=== PATIENT | female | born 1990 | race Caucasian/White ===

== ENCOUNTER 2018-12-15 17:35 | Inpatient (IN) | payer OTHER ==
[2018-12-15 17:42] VITALS: BMI 14.0
--- NOTE | 2018-12-15 21:31 | HP ---
CIWA Score Nausea/Vomitin (VOMITING X 5) Muscle Tremors: 4-Moderate,w/Arms Extend Anxiety: 3 Agitation: 3 Paroxysmal Sweats: 2 Orientation: 0-Oriented Tacttile Disturbances: 1-Very Mild Itch/Numbness Auditory Disturbances: 0-None Visual Disturbances: 0-None Headache: 3-Moderate CIWA-Ar Total Score: 19 - Admission Criteria OASAS Guidelines: Admission for Medically Managed Detox: Requires at least one of the followin. CIWA greater than 12 2. Seizures within the past 24 hours 3. Delirium tremens within the past 24 hours 4. Hallucinations within the past 24 hours 5. Acute intervention needed for co occurring medical disorder 6. Acute intervention needed for co occurring psychiatric disorder 7. Severe withdrawal that cannot be handled at a lower level of care (continued vomiting, continued diarrhea, abnormal vital signs) requiring intravenous medication and/or fluids 8. Admission ROS [facility] Chief Complaint: ALCOHOL WITHDRAWAL SYMPTOMS Allergies/Adverse Reactions: Allergies Allergy/AdvReac Type Severity Reaction Status Date / Time amoxicillin trihydrate AdvReac Intermediate Vomiting Verified 12/15/18 22:13 [From Augmentin] potassium clavulanate AdvReac Intermediate Vomiting Verified 12/15/18 22:13 [From Augmentin] History of Present Illness: 28 years old female with 11 years of alcohol dependence is seeking admission to detox. Patient reports last detox in 2016 and insignificant period of sobriety. She reports history of depression, anxiety and suicide attempt in 2006 and 2011 respectively. She denies suicide ideation at this time. Exam Limitations: No Limitations - Ebola screening Have you traveled outside of the country in the last 21 days: No Have you had contact with anyone from an Ebola affected area: No Have you been sick,other than usual withdrawal symptoms: No Do you have a fever: No - Review of Systems Constitutional: Chills, Loss of Appetite, Malaise, Night Sweats, Changes in sleep EENT: reports: Sinus Pressure Respiratory: reports: No Symptoms reported Cardiac: reports: No Symptoms Reported GI: reports: Poor Appetite, Poor Fluid Intake, Abdominal cramping : reports: No Symptoms Reported Musculoskeletal: reports: Back Pain, Muscle Weakness Integumentary: reports: Dryness, Flushing Neuro: reports: Tremors Endocrine: reports: No Symptoms Reported Hematology: reports: No Symptoms Reported Psychiatric: reports: Anxious, Depressed Other Systems: Reviewed and Negative Patient History - Patient Medical History Hx Anemia: No Hx Asthma: No Hx Chronic Obstructive Pulmonary Disease (COPD): No Hx Cancer: No Hx Cardiac Disorders: No Hx Congestive Heart Failure: No Hx Hypertension: No Hx Hypercholesterolemia: No Hx Pacemaker: No HX Cerebrovascular Accident: No Hx Seizures: No Hx Dementia: No Hx Diabetes: No Hx Gastrointestinal Disorders: No Hx Liver Disease: No Hx Genitourinary Disorders: No Hx Sexually Transmitted Disorders: No Hx Renal Disease (ESRD): No Hx Thyroid Disease: No Hx Human Immunodeficiency Virus (HIV): No (last 09/13/15) Hx Hepatitis C: No Hx Depression: Yes Hx Suicide Attempt: Yes (cut left wrist 2006,2011. Denies suicidal ideation at this time) Hx Bipolar Disorder: No Hx Schizophrenia: No Other Medical History: Anxiety - Not on medication - Patient Surgical History Past Surgical History: Yes Other Surgical History: RIGHT HIP CYST REMOVAL - PPD History Previous Implant?: Yes Documented Results: Negative w/o proof Implanted On Prior [facility] Admission?: Yes Date: 09/16/15 PPD to be Administered?: Yes - Reproductive History Patient is a Female of Child Bearing Age (11 -55 yrs old): Yes Last Menstrual Period: 12/08/18 Patient : No - Smoking Cessation Smoking history: Current every day smoker Have you smoked in the past 12 months: Yes Aproximately how many cigarettes per day: 20 Cigars Per Day: 0 Hx Chewing Tobacco Use: No Initiated information on smoking cessation: Yes 'Breaking Loose' booklet given: 12/16/18 - Substance & Tx. History Hx Alcohol Use: Yes Hx Substance Use: Yes Substance Use Type: Alcohol Hx Substance Use Treatment: Yes - Substances Abused Alcohol Route: Oral Frequency: Daily Amount used: Liquor 3-4 pints Age of first use: 17 Date of Last Use: 12/15/18 Marijuana/Hashish Route: Smoking Frequency: Daily Amount used: $200/week Age of first use: 16 Date of Last Use: 12/15/18 Family Disease History - Family Disease History Family Disease History: Other: Father (alcohol), Mother (alcohol) Admission Physical Exam [facility] - Vital Signs Vital Signs: Vital Signs - 24 hr 12/15/18 17:37 Temperature 98.6 F Pulse Rate 74 Respiratory 18 Rate Blood Pressure 102/73 - Physical General Appearance: Yes: Moderate Distress, Tremorous, Irritable, Sweating, Anxious HEENTM: Yes: EOMI, Normal ENT Inspection, Normal Voice, KIKE Respiratory: Yes: Lungs Clear, Normal Breath Sounds, No Respiratory Distress Neck: Yes: Supple Breast: Yes: Breast Exam Deferred Cardiology: Yes: Regular Rhythm, Regular Rate Abdominal: Yes: Normal Bowel Sounds Genitourinary: Yes: Within Normal Limits Back: Yes: Normal Inspection Musculoskeletal: Yes: Back pain, Muscle Pain Extremities: Yes: Tremors Neurological: Yes: Alert, Normal Mood/Affect Integumentary: Yes: Warm, Clammy Lymphatic: Yes: Within Normal Limits - Diagnostic (1) Anxiety Current Visit: Yes Status: Chronic (2) Alcohol dependence with uncomplicated withdrawal Current Visit: Yes Status: Chronic (3) Cannabis dependence Current Visit: Yes Status: Chronic (4) Depression Current Visit: Yes Status: Chronic Qualifiers: Depression Type: unspecified Qualified Code(s): F32.9 - Major depressive disorder, single episode, unspecified (5) Nicotine dependence Current Visit: Yes Status: Chronic Qualifiers: Nicotine product type: cigarettes Substance use status: uncomplicated Qualified Code(s): F17.210 - Nicotine dependence, cigarettes, uncomplicated Cleared for Admission [facility] - Detox or Rehab [facility] Level of Care: Medically Managed Detox Regimen/Protocol: Librium [facility] Breath Alcohol Content Breath Alcohol Content: 0 Urine Pregancy Test - Result Urine Test Results: Negative- NO Line Present Urine Drug Screen - Results Drug Screen Negative: No Urine Drug Screen Results: THC-Marijuana, BAR-Barbiturates
[2018-12-16] MEDS ORDERED: MAG HYDROX/AL HYDROX/SIMETH 30 ML UNIT-DOSE CUP PO PRN (01:19)
[2018-12-16] MEDS ORDERED: LOPERAMIDE HCL 2 MG CAPSULE PO PRN (01:19)
[2018-12-16] MEDS ORDERED: P-EPHED 60MG/TRIPROLIDI 2.5MG TABLET PO PRN (01:19)
[2018-12-16] MEDS ORDERED: ACETAMINOPHEN 325 MG TABLET (FP) PO PRN (01:19)
[2018-12-16] MEDS ORDERED: IBUPROFEN 400 MG TABLET (FP) PO PRN (01:19)
[2018-12-16] MEDS ORDERED: MAGNESIUM CITRATE 300 ML BOTTLE PO PRN (01:19)
[2018-12-16] MEDS ORDERED: NICOTINE POLACRILEX 2 MG GUM BC PRN (01:19)
[2018-12-16] MEDS ORDERED: MAGNESIUM HYDROX 2400MG/30ML ORAL SUSPENSION 30 ML CUP PO PRN (01:19)
[2018-12-16] MEDS ORDERED: chlordiazePOXIDE HCL 25 MG CAPSULE PO PRN (01:19)
[2018-12-16] MEDS ORDERED: MENTHOL/PHENOL 1 EACH UD MM PRN (01:19)
[2018-12-16] MEDS ORDERED: guaiFENesin/D-METHORPHAN HB 10 ML UNIT-DOSE CUPS PO PRN (01:19)
[2018-12-16] MEDS: chlordiazePOXIDE HCL 25 MG CAPSULE PO SCH ×4 (05:42→22:41)
[2018-12-16] MEDS: NICOTINE 14 MG/24 HOURS TOPICAL PATCH TD SCH (10:28)
[2018-12-16] MEDS: PRENATAL VITAMINS W/ FOLIC ACID TABLET (FP) PO SCH (10:28)
[2018-12-16] MEDS ORDERED: ONDANSETRON *ODT* 4 MG TABLET SL PRN (14:01)
--- NOTE | 2018-12-16 16:14 | PN ---
S CIWA - CIWA Score Nausea/Vomitin Muscle Tremors: 3 Anxiety: 3 Agitation: 2 Paroxysmal Sweats: 3 Orientation: 0-Oriented Tacttile Disturbances: 2-Mild Itch/Numbness/Burn Auditory Disturbances: 0-None Visual Disturbances: 0-None Headache: 2-Mild CIWA-Ar Total Score: 20 BHS Progress Note (SOAP) Subjective: Diarrhea, Sweating, Vomiting, Tremors, Interrupted Sleep, Body Aches, H/A. Objective: PATIENT A & O X 3, OBSERVED AMBULATING ON UNIT. IN NO ACUTE DISTRESS. 12/16/18 16:12 Vital Signs Temperature 98.1 F 12/16/18 14:00 Pulse Rate 69 12/16/18 14:00 Respiratory Rate 20 12/16/18 14:00 Blood Pressure 112/80 12/16/18 14:00 O2 Sat by Pulse Oximetry (%) ADMISSION LABS RESULTS PENDING. 12/16/18 16:13 Assessment: 12/16/18 16:13 WITHDRAWAL SYMPTOMS. Plan: CONTINUE DETOX. PRN ZOFRAN SL FOR VOMITING. PRN IMMODIUM FOR DIARRHEA. PRN MELATONIN PO FOR SLEEPING DIFFICULTY. INCREASE DAILY PO FLUID INTAKE.
[2018-12-16] MEDS: THIAMINE HCL 100 MG TABLET (FP) PO SCH (22:41)
[2018-12-17] MEDS: chlordiazePOXIDE HCL 25 MG CAPSULE PO SCH ×4 (05:31→22:30)
[2018-12-17] MEDS: PRENATAL VITAMINS W/ FOLIC ACID TABLET (FP) PO SCH (10:15)
[2018-12-17] MEDS: NICOTINE 14 MG/24 HOURS TOPICAL PATCH TD SCH (10:16)
[2018-12-17 10:26] LABS: ALBUMIN 3.8 g/dl (3.4-5.0); ALK PHOS 62 U/L (45-117); ANION GAP 9 MMOL/L (8-16); BILIRUBIN,TOTAL 0.5 mg/dL (0.2-1); BLOOD UREA NITROGEN 8 mg/dL (7-18); CALCIUM 9.1 mg/dL (8.5-10.1); CHLORIDE 100 mmol/L (98-107); CO2 29 mmol/L (21-32); CREATININE 0.8 mg/dL (0.55-1.3); GLUCOSE,RANDOM 98 mg/dL (74-106); POTASSIUM 3.3 mmol/L (3.5-5.1); SGOT/AST 25 U/L (15-37); SGPT/ALT 29 U/L (13-61); SODIUM 138 mmol/L (136-145); TOT PROT 7.1 g/dl (6.4-8.2)
[2018-12-17 10:42] LABS: HEMOGLOBIN 11.4 GM/dL (10.7-15.3); MCH 30.2 pg (25.7-33.7); MCHC 33.4 g/dl (32.0-36.0); MEAN CELL VOLUME 90.2 fl (80-96); MEAN PLT VOLUME 9.1 fl (7.5-11.1); PLATELET COUNT 219 K/MM3 (134-434); RBC 3.77 M/mm3 (3.60-5.2); RDW 17.5 % (11.6-15.6); WHITE BLOOD COUNT 3.9 K/mm3 (4.0-10.0)
--- NOTE | 2018-12-17 14:19 | PN ---
S CIWA - CIWA Score Nausea/Vomitin-Mild Nausea/No Vomiting Muscle Tremors: 4-Moderate,w/Arms Extend Anxiety: 2 Agitation: 3 Paroxysmal Sweats: 1-Minimal Palms Moist Orientation: 1-Uncertain about Date Tacttile Disturbances: 0-None Auditory Disturbances: 1-Very Mild Visual Disturbances: 0-None Headache: 2-Mild CIWA-Ar Total Score: 15 S Progress Note (SOAP) Subjective: tremor sweating anxiety restlessness trouble sleep at night Objective: 12/17/18 14:15 Vital Signs Temperature 98.2 F 12/17/18 14:03 Pulse Rate 64 12/17/18 14:03 Respiratory Rate 16 12/17/18 14:03 Blood Pressure 107/63 12/17/18 14:03 O2 Sat by Pulse Oximetry (%) Laboratory Last Values WBC 3.9 K/mm3 (4.0-10.0) L 12/17/18 07:50 RBC 3.77 M/mm3 (3.60-5.2) 12/17/18 07:50 Hgb 11.4 GM/dL (10.7-15.3) 12/17/18 07:50 Hct 34.0 % (32.4-45.2) 12/17/18 07:50 MCV 90.2 fl (80-96) 12/17/18 07:50 MCH 30.2 pg (25.7-33.7) 12/17/18 07:50 MCHC 33.4 g/dl (32.0-36.0) 12/17/18 07:50 RDW 17.5 % (11.6-15.6) H 12/17/18 07:50 Plt Count 219 K/MM3 (134-434) 12/17/18 07:50 MPV 9.1 fl (7.5-11.1) 12/17/18 07:50 Sodium 138 mmol/L (136-145) 12/17/18 07:50 Potassium 3.3 mmol/L (3.5-5.1) L 12/17/18 07:50 Chloride 100 mmol/L (98-107) 12/17/18 07:50 Carbon Dioxide 29 mmol/L (21-32) 12/17/18 07:50 Anion Gap 9 MMOL/L (8-16) 12/17/18 07:50 BUN 8 mg/dL (7-18) 12/17/18 07:50 Creatinine 0.8 mg/dL (0.55-1.3) 12/17/18 07:50 Creat Clearance w eGFR > 60 (>60) 12/17/18 07:50 Random Glucose 98 mg/dL (74-106) 12/17/18 07:50 Calcium 9.1 mg/dL (8.5-10.1) 12/17/18 07:50 Total Bilirubin 0.5 mg/dL (0.2-1) 12/17/18 07:50 AST 25 U/L (15-37) 12/17/18 07:50 ALT 29 U/L (13-61) 12/17/18 07:50 Alkaline Phosphatase 62 U/L (45-117) 12/17/18 07:50 Total Protein 7.1 g/dl (6.4-8.2) 12/17/18 07:50 Albumin 3.8 g/dl (3.4-5.0) 12/17/18 07:50 RPR Titer Nonreactive (NONREACTIVE) 12/17/18 07:50 HIV 1&2 Antibody Screen Negative 12/16/18 08:00 HIV P24 Antigen Negative 12/16/18 08:00 lab noted K+ low Assessment: 12/17/18 14:15 withdrawal sx hypokalemia Plan: continue detox K+ supplement repeat K+ 12/18/18
[2018-12-17] MEDS: THIAMINE HCL 100 MG TABLET (FP) PO SCH (22:29)
[2018-12-17] MEDS: POTASSIUM CHLORIDE TABS 20 MEQ TABLET.ER (FP) PO SCH (22:30)
[2018-12-17] MEDS: MELATONIN 5 MG TABLETS PO PRN (22:31)
[2018-12-18] MEDS: chlordiazePOXIDE 5 MG CAPSULE PO SCH ×4 (05:39→22:29)
[2018-12-18] MEDS ORDERED: POTASSIUM CHLORIDE TABS 20 MEQ TABLET.ER (FP) PO SCH (06:00)
[2018-12-18] MEDS: NICOTINE 14 MG/24 HOURS TOPICAL PATCH TD SCH (10:07)
[2018-12-18] MEDS: POTASSIUM CHLORIDE TABS 20 MEQ TABLET.ER (FP) PO SCH ×2 (10:07→22:28)
[2018-12-18] MEDS: PRENATAL VITAMINS W/ FOLIC ACID TABLET (FP) PO SCH (10:08)
[2018-12-18] MEDS ORDERED: CYCLOBENZAPRINE HCL 10 MG TABLET (FP) PO PRN (12:47)
[2018-12-18] MEDS ORDERED: hydrOXYzine PAMOATE 50 MG CAPSULE (FP) PO PRN (12:56)
[2018-12-18] MEDS: THIAMINE HCL 100 MG TABLET (FP) PO SCH (22:28)
[2018-12-18] MEDS: MELATONIN 5 MG TABLETS PO PRN (22:31)
[2018-12-19] MEDS: chlordiazePOXIDE HCL 10 MG CAPSULE PO SCH ×2 (05:25→10:26)
[2018-12-19 09:28] VITALS: BP 105/74; PULSE 82; TEMP 97.3
[2018-12-19] MEDS: PRENATAL VITAMINS W/ FOLIC ACID TABLET (FP) PO SCH (10:25)
[2018-12-19] MEDS: POTASSIUM CHLORIDE TABS 20 MEQ TABLET.ER (FP) PO SCH (10:25)
[2018-12-19] MEDS: NICOTINE 14 MG/24 HOURS TOPICAL PATCH TD SCH (10:26)
--- NOTE | 2018-12-19 11:43 | PN ---
BHS Progress Note (SOAP) Subjective: feeling better less tremor mild sweating Objective: 12/19/18 11:40 Vital Signs Temperature 97.3 F L 12/19/18 09:27 Pulse Rate 82 12/19/18 09:27 Respiratory Rate 18 12/19/18 09:27 Blood Pressure 105/74 12/19/18 09:27 O2 Sat by Pulse Oximetry (%) Laboratory Last Values WBC 3.9 K/mm3 (4.0-10.0) L 12/17/18 07:50 RBC 3.77 M/mm3 (3.60-5.2) 12/17/18 07:50 Hgb 11.4 GM/dL (10.7-15.3) 12/17/18 07:50 Hct 34.0 % (32.4-45.2) 12/17/18 07:50 MCV 90.2 fl (80-96) 12/17/18 07:50 MCH 30.2 pg (25.7-33.7) 12/17/18 07:50 MCHC 33.4 g/dl (32.0-36.0) 12/17/18 07:50 RDW 17.5 % (11.6-15.6) H 12/17/18 07:50 Plt Count 219 K/MM3 (134-434) 12/17/18 07:50 MPV 9.1 fl (7.5-11.1) 12/17/18 07:50 Sodium 138 mmol/L (136-145) 12/17/18 07:50 Potassium 4.2 mmol/L (3.5-5.1) 12/18/18 07:00 Chloride 100 mmol/L (98-107) 12/17/18 07:50 Carbon Dioxide 29 mmol/L (21-32) 12/17/18 07:50 Anion Gap 9 MMOL/L (8-16) 12/17/18 07:50 BUN 8 mg/dL (7-18) 12/17/18 07:50 Creatinine 0.8 mg/dL (0.55-1.3) 12/17/18 07:50 Creat Clearance w eGFR > 60 (>60) 12/17/18 07:50 Random Glucose 98 mg/dL (74-106) 12/17/18 07:50 Calcium 9.1 mg/dL (8.5-10.1) 12/17/18 07:50 Total Bilirubin 0.5 mg/dL (0.2-1) 12/17/18 07:50 AST 25 U/L (15-37) 12/17/18 07:50 ALT 29 U/L (13-61) 12/17/18 07:50 Alkaline Phosphatase 62 U/L (45-117) 12/17/18 07:50 Total Protein 7.1 g/dl (6.4-8.2) 12/17/18 07:50 Albumin 3.8 g/dl (3.4-5.0) 12/17/18 07:50 RPR Titer Nonreactive (NONREACTIVE) 12/17/18 07:50 HIV 1&2 Antibody Screen Negative 12/16/18 08:00 HIV P24 Antigen Negative 12/16/18 08:00 lab noted Assessment: 12/19/18 11:41 mild withdrawal sx Plan: continue detox
--- NOTE | 2018-12-19 11:46 | DS ---
[facility] Detox Discharge Summary Admission Date: 12/15/18 Discharge Date: 12/19/18 - History Present History: Alcohol Dependence Additional Comments: 28 years old female admitted on 12/15/18 for alcohol withdrawal stabilization [facility] Physical Exam Results Vital Signs: Vital Signs Temperature 97.3 F L 12/19/18 09:27 Pulse Rate 82 12/19/18 09:27 Respiratory Rate 18 12/19/18 09:27 Blood Pressure 105/74 12/19/18 09:27 O2 Sat by Pulse Oximetry (%) Pertinent Admission Physical Exam Findings: alcohol withdrawal sx Laboratory Last Values WBC 3.9 K/mm3 (4.0-10.0) L 12/17/18 07:50 RBC 3.77 M/mm3 (3.60-5.2) 12/17/18 07:50 Hgb 11.4 GM/dL (10.7-15.3) 12/17/18 07:50 Hct 34.0 % (32.4-45.2) 12/17/18 07:50 MCV 90.2 fl (80-96) 12/17/18 07:50 MCH 30.2 pg (25.7-33.7) 12/17/18 07:50 MCHC 33.4 g/dl (32.0-36.0) 12/17/18 07:50 RDW 17.5 % (11.6-15.6) H 12/17/18 07:50 Plt Count 219 K/MM3 (134-434) 12/17/18 07:50 MPV 9.1 fl (7.5-11.1) 12/17/18 07:50 Sodium 138 mmol/L (136-145) 12/17/18 07:50 Potassium 4.2 mmol/L (3.5-5.1) 12/18/18 07:00 Chloride 100 mmol/L (98-107) 12/17/18 07:50 Carbon Dioxide 29 mmol/L (21-32) 12/17/18 07:50 Anion Gap 9 MMOL/L (8-16) 12/17/18 07:50 BUN 8 mg/dL (7-18) 12/17/18 07:50 Creatinine 0.8 mg/dL (0.55-1.3) 12/17/18 07:50 Creat Clearance w eGFR > 60 (>60) 12/17/18 07:50 Random Glucose 98 mg/dL (74-106) 12/17/18 07:50 Calcium 9.1 mg/dL (8.5-10.1) 12/17/18 07:50 Total Bilirubin 0.5 mg/dL (0.2-1) 12/17/18 07:50 AST 25 U/L (15-37) 12/17/18 07:50 ALT 29 U/L (13-61) 12/17/18 07:50 Alkaline Phosphatase 62 U/L (45-117) 12/17/18 07:50 Total Protein 7.1 g/dl (6.4-8.2) 12/17/18 07:50 Albumin 3.8 g/dl (3.4-5.0) 12/17/18 07:50 RPR Titer Nonreactive (NONREACTIVE) 12/17/18 07:50 HIV 1&2 Antibody Screen Negative 12/16/18 08:00 HIV P24 Antigen Negative 12/16/18 08:00 lab noted - Treatment Hospital Course: Detox Protocol Followed, Detoxed Safely, Responded well, Discharged Condition Good, Rehab Referral Accepted Patient has Accepted a Rehab Referral to: [facility] services - Medication Discharge Medications: Ambulatory Orders NK [No Known Home Medication] 12/15/18 - Diagnosis (1) Alcohol dependence with uncomplicated withdrawal Current Visit: Yes Status: Acute (2) Nicotine dependence Current Visit: Yes Status: Acute Qualifiers: Nicotine product type: cigarettes Substance use status: in withdrawal Qualified Code(s): F17.213 - Nicotine dependence, cigarettes, with withdrawal (3) Alcohol-induced mood disorder Current Visit: Yes Status: Suspected - AMA Did Patient Leave Against Medical Advice: No
== END 2018-12-19 11:58 | disposition home or self-care (01) | DRG 775 ==
LOC: YASAS 17:35 → Y3N 23:33
PROVIDERS: ADMIT Neuromusculoskeletal Medicine & OMM; ATTEND Neuromusculoskeletal Medicine & OMM
PROC: HZ2ZZZZ Detoxification Services for Substance Abuse Treatment (ICD-10-PCS; principal; 2018-12-15)
DX: F10.230 Alcohol dependence with withdrawal, uncomplicated (principal); F10.24 Alcohol dependence with alcohol-induced mood disorder; F12.20 Cannabis dependence, uncomplicated; F17.213 Nicotine dependence, cigarettes, with withdrawal; F32.9 Major depressive disorder, single episode, unspecified; F41.9 Anxiety disorder, unspecified; E87.6 Hypokalemia; Z91.5 Personal history of self-harm
CPT/HCPCS: 36415; 80053; 84132; 85027; 86593; 87389

== ENCOUNTER 2020-08-15 20:38 | Inpatient (IN) | payer OTHER ==
[2020-08-15 21:24] VITALS: BMI 14.8
--- NOTE | 2020-08-15 21:27 | HP ---
CIWA Score Nausea/Vomitin-No Nausea/No Vomiting Muscle Tremors: 4-Moderate,w/Arms Extend Anxiety: 0-No Anxiety, at Ease Agitation: 4-Moderately Restless (IRRITABLE) Paroxysmal Sweats: 3 Orientation: 0-Oriented Tacttile Disturbances: 0-None Auditory Disturbances: 0-None Visual Disturbances: 2-Mild Sensitivity (to light) Headache: 4-Moderately Severe (8/10) CIWA-Ar Total Score: 17 - Admission Criteria OASAS Guidelines: Admission for Medically Managed Detox: Requires at least one of the followin. CIWA greater than 12 2. Seizures within the past 24 hours 3. Delirium tremens within the past 24 hours 4. Hallucinations within the past 24 hours 5. Acute intervention needed for co occurring medical disorder 6. Acute intervention needed for co occurring psychiatric disorder 7. Severe withdrawal that cannot be handled at a lower level of care (continued vomiting, continued diarrhea, abnormal vital signs) requiring intravenous medication and/or fluids 8. Patient presents the following: CIWA greater than 12 Admission Criteria Met: Admission criteria met Admitting History and Physical - Past Medical History ...LMP: 12/08/18 - Smoking History Smoking history: Current every day smoker Have you smoked in the past 12 months: Yes Aproximately how many cigarettes per day: 20 - Alcohol/Substance Use Hx Alcohol Use: Yes Admission ROS S - HPI Chief Complaint: here for alcohol detox. c/o withdrawal sx's Allergies/Adverse Reactions: Allergies Allergy/AdvReac Type Severity Reaction Status Date / Time amoxicillin trihydrate AdvReac Intermediate Vomiting Verified 12/15/18 22:13 [From Augmentin] potassium clavulanate AdvReac Intermediate Vomiting Verified 12/15/18 22:13 [From Augmentin] History of Present Illness: HERE FOR ALCOHOL DETOX. CLIENT IS KNOWN TO THE PROGRAM LAST HERE . REPORTS CLEAN TIME OF 5 MONTHS AFTER PRIOR TO RELAPSING. CLIENT REPORTS DAILY ALCOHOL INTAKE. + [employer], BLACK OUTS, DENIES SEIZURES D/O. PRESENTS TODAY WITH C/O WITHDRAWAL SX'S. STATES SHE WENT TO [facility] THIS MORN[facility] 2/2 INTOXICATION. DENIES ANY TXMENT EXCEPT A TYLENOL FOR HEADACHE. DOES NOT HAVE DC PAPERS. OUT REACH WAS CALLED AND SHE WAS BROUGHT HERE. HOMELESS, UNEMPLOYED, DENIES LEGALS Exam Limitations: No Limitations - Ebola screening Have you traveled outside of the country in the last 21 days: No Have you had contact with anyone from an Ebola affected area: No Have you been sick,other than usual withdrawal symptoms: No Do you have a fever: No - Review of Systems Constitutional: Chills, Night Sweats, Changes in sleep EENT: reports: Dental Problems (MISSING TEETH) Respiratory: reports: No Symptoms reported Cardiac: reports: No Symptoms Reported GI: reports: Poor Fluid Intake : reports: No Symptoms Reported Musculoskeletal: reports: Back Pain (CHRONIC) Integumentary: reports: No Symptoms Reported Neuro: reports: Headache, Tremors Endocrine: reports: No Symptoms Reported Hematology: reports: No Symptoms Reported Psychiatric: reports: Orientated x3, Agitated Other Systems: Reviewed and Negative Patient History - Patient Medical History Hx Anemia: No Hx Asthma: No Hx Chronic Obstructive Pulmonary Disease (COPD): No Hx Cancer: No Hx Cardiac Disorders: No Hx Congestive Heart Failure: No Hx Hypertension: No Hx Hypercholesterolemia: No Hx Pacemaker: No HX Cerebrovascular Accident: No Hx Seizures: No Hx Dementia: No Hx Diabetes: No Hx Gastrointestinal Disorders: No Hx Liver Disease: No Hx Genitourinary Disorders: No Hx Sexually Transmitted Disorders: Yes (CHLAMYDIA X2) Hx Renal Disease (ESRD): No Hx Thyroid Disease: No Hx Human Immunodeficiency Virus (HIV): No Hx Hepatitis C: No Hx Depression: Yes Hx Suicide Attempt: Yes (summer SLIT WRIST) Hx Bipolar Disorder: No Hx Schizophrenia: No Other Medical History: DENIES - Patient Surgical History Past Surgical History: Yes Hx Neurologic Surgery: No Hx Cataract Extraction: No Hx Cardiac Surgery: No Hx Lung Surgery: No Hx Breast Surgery: No Hx Breast Biopsy: No Hx Abdominal Surgery: No Hx Appendectomy: No Hx Cholecystectomy: No Hx Genitourinary Surgery: No Hx Section: No Hx Orthopedic Surgery: Yes (L Wrist Surgery r/t Fracture) Other Surgical History: RIGHT HIP CYST REMOVAL Anesthesia Reaction: No - PPD History Previous Implant?: Yes Documented Results: Negative w/proof Implanted On Prior [facility] Admission?: Yes Date: 12/18/18 Results: 0MM PPD to be Administered?: Yes - Reproductive History Patient is a Female of Child Bearing Age (11 -55 yrs old): Yes Last Menstrual Period: 08/09/20 LMP comment: REG Patient : No (NEG UHCG) - Smoking Cessation Smoking history: Current every day smoker Have you smoked in the past 12 months: Yes Aproximately how many cigarettes per day: 5 Cigars Per Day: 0 Hx Chewing Tobacco Use: No Initiated information on smoking cessation: Yes 'Breaking Loose' booklet given: 08/15/20 - Substance & Tx. History Hx Alcohol Use: Yes Hx Substance Use: Yes Substance Use Type: Alcohol, Marijuana Hx Substance Use Treatment: Yes ([facility]) - Substances abused Alcohol Other (specify): VODKA Substance route: Oral Frequency: Daily Amount used: 5 PINTS Age of first use: 17 Date of last use: 08/14/20 Marijuana/Hashish Substance route: Oral Frequency: Daily Amount used: 5 BLUNTS Age of first use: 16 Date of last use: 08/14/20 Admission Physical Exam [facility] - Physical General Appearance: Yes: Moderate Distress, Tremorous, Irritable HEENTM: Yes: EOMI, Normocephalic, Normal Voice, KIKE, Pharynx Normal, Other (MISSING TEETH) Respiratory: Yes: Chest Non-Tender, Lungs Clear, Normal Breath Sounds, No Respiratory Distress, No Accessory Muscle Use Neck: Yes: No masses,lesions,Nodules, Supple, Trachea in good position Breast: Yes: Breasts Symetrical Cardiology: Yes: Regular Rhythm, Regular Rate, S1, S2 Abdominal: Yes: Normal Bowel Sounds, Non Tender, Flat, Soft, Other (abd piercing) Genitourinary: Yes: Within Normal Limits Back: Yes: Normal Inspection Musculoskeletal: Yes: full range of Motion, Gait Steady Extremities: Yes: Normal Capillary Refill, Normal Range of Motion, Non-Tender, Tremors Neurological: Yes: Fully Oriented, Alert, Motor Strength 5/5, Depressed Affect Integumentary: Yes: Dry, Warm Lymphatic: Yes: Within Normal Limits - Diagnostic (1) Depressed affect Current Visit: Yes Status: Acute (2) Homeless Current Visit: Yes Status: Acute (3) Alcohol dependence with uncomplicated withdrawal Current Visit: Yes Status: Acute (4) Nicotine dependence Current Visit: Yes Status: Chronic Qualifiers: Nicotine product type: cigarettes Substance use status: in withdrawal Qualified Code(s): F17.213 - Nicotine dependence, cigarettes, with withdrawal (5) Cannabis dependence Current Visit: Yes Status: Acute (6) Alcohol-induced mood disorder Current Visit: Yes Status: Suspected Cleared for Admission [facility] - Detox or Rehab [facility] Level of Care: Medically Managed Detox Regimen/Protocol: Librium Claeared for Rehab Admission: No Inpatient Rehab Admission - Rehab Decision to Admit Inpatient rehab admission?: No
[2020-08-15] MEDS ORDERED: ONDANSETRON *ODT* 4 MG TABLET SL PRN (21:36)
[2020-08-15] MEDS ORDERED: MAGNESIUM CITRATE 300 ML BOTTLE PO PRN (21:36)
[2020-08-15] MEDS ORDERED: hydrOXYzine PAMOATE 25 MG CAPSULE (FP) PO PRN (21:36)
[2020-08-15] MEDS ORDERED: P-EPHED 60MG/TRIPROLIDI 2.5MG TABLET PO PRN (21:36)
[2020-08-15] MEDS ORDERED: IBUPROFEN 400 MG TABLET (FP) PO PRN (21:36)
[2020-08-15] MEDS ORDERED: NICOTINE POLACRILEX 2 MG GUM BUC PRN (21:36)
[2020-08-15] MEDS ORDERED: chlordiazePOXIDE HCL 25 MG CAPSULE PO PRN (21:36)
[2020-08-15] MEDS ORDERED: METHOCARBAMOL 500 MG TABLET PO PRN (21:36)
[2020-08-15] MEDS ORDERED: guaiFENesin 200 MG/10 ML 10 ML UNIT-DOSE CUPS PO PRN (21:36)
[2020-08-15] MEDS ORDERED: MAG HYDROX/AL HYDROX/SIMETH 30 ML UNIT-DOSE CUP PO PRN (21:36)
[2020-08-15] MEDS ORDERED: MENTHOL/PHENOL 1 EACH UD MM PRN (21:36)
[2020-08-15] MEDS ORDERED: DICYCLOMINE HCL 10 MG CAPSULE PO PRN (21:36)
[2020-08-15] MEDS ORDERED: ACETAMINOPHEN 325 MG TABLET (FP) PO PRN (21:36)
[2020-08-15] MEDS ORDERED: MAGNESIUM HYDROX 2400MG/30ML ORAL SUSPENSION 30 ML CUP PO PRN (21:36)
[2020-08-15] MEDS ORDERED: BISMUTH SUBSALICYLATE 524 MG/30 ML UD PO PRN (21:36)
[2020-08-15] MEDS: chlordiazePOXIDE HCL 25 MG CAPSULE PO SCH (22:50)
[2020-08-15] MEDS: THIAMINE HCL 100 MG TABLET (FP) PO SCH (22:52)
[2020-08-15] MEDS: MELATONIN 5 MG TABLETS PO SCH (22:53)
[2020-08-15] MEDS ORDERED: chlordiazePOXIDE HCL 25 MG CAPSULE PO SCH (23:00)
[2020-08-16] MEDS: ACETAMINOPHEN 325 MG TABLET (FP) PO PRN ×2 (06:29→22:44)
[2020-08-16] MEDS: chlordiazePOXIDE HCL 25 MG CAPSULE PO SCH ×4 (06:29→22:41)
[2020-08-16 09:41] LABS: HEMATOCRIT 34.6 % (32.4-45.2); HEMOGLOBIN 11.5 GM/dL (10.7-15.3); MCH 29.7 pg (25.7-33.7); MCHC 33.4 g/dl (32.0-36.0); MEAN PLT VOLUME 8.9 fl (7.5-11.1); PLATELET COUNT 291 K/MM3 (134-434); RBC 3.88 M/mm3 (3.60-5.2); WHITE BLOOD COUNT 4.7 K/mm3 (4.0-10.0)
[2020-08-16 09:55] LABS: ALBUMIN 3.7 g/dl (3.4-5.0); BILIRUBIN,TOTAL 0.6 mg/dL (0.2-1); BLOOD UREA NITROGEN 8.5 mg/dL (7-18); CALCIUM 8.9 mg/dL (8.5-10.1); CREATININE 0.8 mg/dL (0.55-1.3); POTASSIUM 3.3 mmol/L (3.5-5.1); TOT PROT 7.4 g/dl (6.4-8.2)
[2020-08-16] MEDS: NICOTINE 14 MG/24 HOURS TOPICAL PATCH TD SCH (10:44)
[2020-08-16] MEDS: PRENATAL VITAMINS W/ FOLIC ACID TABLET (FP) PO SCH (10:44)
[2020-08-16] MEDS ORDERED: POTASSIUM CHLORIDE TABS 20 MEQ TABLET.ER (FP) PO ONE (11:30)
--- NOTE | 2020-08-16 15:00 | CONSULT ---
[facility] Psychiatric Consult - Data Date of interview: 08/16/20 Admission source: [facility] Identifying data: Revisit to [facility] and admission to [address] [place] [address] for this 30 y/o female self-referred for detoxification treatment. CHRISTIANNE issues : alcohol, cannabis, nicotine. Patient is single, a mother of two, homeless, unemployed and supported on welfare. Substance Abuse History: Discussed with the patient CHRISTIANNE profile as follows : Smoking history: Current every day smoker. Have you smoked in the past 12 months: Yes. Approximately how many cigarettes per day: 5. Cigars Per Day: 0. Hx Chewing Tobacco Use: No. Initiated information on smoking cessation: Yes. 'Breaking Loose' booklet given: 08/15/20. - Substance & Tx. History. Hx Alcohol Use: Yes. Hx Substance Use: Yes. Substance Use Type: Alcohol, Marijuana. Hx Substance Use Treatment: Yes ([facility]). - Substances abused. Alcohol. Other (specify): VODKA. Substance route: Oral. Frequency: Daily. Amount used: 5 PINTS. Age of first use: 17. Date of last use: 08/14/20. Ma rijuana/Hashish. Substance route: Oral. Frequency: Daily. Amount used: 5 BLUNTS. Age of first use: 16. Date of last use: 08/14/20 Medical History: Medical profile is remarkable for bilateral ovarian cysts (self-report), weight loss, and history of orthosurgery (both wrists + excision of cyst in right hip). Psychiatric History: Patient admits to a history of one psychiatric hospitalization ([facility]). She was hospitalized ther in May 2019. Diagnosed with Sleep Disorder (sleep studies). She [facility] 2020 for medication management (prescribed seroquel 300 mg/hs). Ms Wong endorses history of two suicide attempts via wrist-cutting (2010 + 2012). Physical/Sexual Abuse/Trauma History: Not discussed. Patient declines. Mental Status Exam - Mental Status Exam Alert and Oriented to: Time, Place, Person Cognitive Function: Good Patient Appearance: Well Groomed (petite, frail habitus ) Mood: Withdrawn, Hopeful Affect: Appropriate, Normal Range Patient Behavior: Fatigued, Appropriate, Cooperative Speech Pattern: Clear, Appropriate Voice Loudness: Normal Thought Process: Intact, Goal Oriented Thought Disorder: Not Present Hallucinations: Denies Suicidal Ideation: Denies Homicidal Ideation: Denies Insight/Judgement: Poor Sleep: Poorly, Difficulty falling asleep Appetite: Fair, Weight loss Gait/Station: Normal Psychiatric Findings - Problem List ([place] 1, 2,3) (1) Alcohol dependence with uncomplicated withdrawal Current Visit: Yes Status: Acute (2) Cannabis dependence Current Visit: Yes Status: Chronic (3) Nicotine dependence Current Visit: Yes Status: Chronic Qualifiers: Nicotine product type: cigarettes Substance use status: in withdrawal Qualified Code(s): F17.213 - Nicotine dependence, cigarettes, with withdrawal (4) Substance induced mood disorder Current Visit: Yes Status: Chronic (5) Insomnia Current Visit: Yes Status: Chronic - Initial Treatment Plan Initial Treatment Plan: Psychoeducation. Sleep hygiene. Detoxification in progress. Patient insists on resuming 300 mg of seroquel at bedtime. However, in view of current weight + lack of collateral information (no scripts for reference) + current detoxification protocol, will proceed with seroquel 100 mg po hs and observe response. Side effects/benefits discussed with the patient. Consent (verbal) granted to
[2020-08-16] MEDS ORDERED: MASKS NR ONE (18:11)
[2020-08-16] MEDS: POTASSIUM CHLORIDE TABS 20 MEQ TABLET.ER (FP) PO SCH (18:12)
--- NOTE | 2020-08-16 18:55 | PN ---
S CIWA - CIWA Score Nausea/Vomitin-No Nausea/No Vomiting Muscle Tremors: 3 Anxiety: 3 Agitation: 2 Paroxysmal Sweats: No Perspiration Orientation: 0-Oriented Tacttile Disturbances: 0-None Auditory Disturbances: 0-None Visual Disturbances: 2-Mild Sensitivity Headache: 2-Mild CIWA-Ar Total Score: 12 S Progress Note (SOAP) Subjective: Anxious, Tremors, Sweating, Fatigue, Interrupted Sleep. Objective: Patient A & O X 3, Observed Ambulating on Detox Unit Unassisted. In No Acute Distress. 08/16/20 18:52 Vital Signs Temperature 98 F 08/16/20 16:34 Pulse Rate 78 08/16/20 16:34 Respiratory Rate 16 08/16/20 16:34 Blood Pressure 112/79 08/16/20 16:34 O2 Sat by Pulse Oximetry (%) 99 08/16/20 16:34 Laboratory Tests 08/16/20 08/16/20 08/16/20 07:30 07:30 07:30 WBC 4.7 RBC 3.88 Hgb 11.5 Hct 34.6 MCV 89.0 MCH 29.7 MCHC 33.4 RDW 17.0 H Plt Count 291 D MPV 8.9 Sodium 135 L Potassium 3.3 L Chloride 100 Carbon Dioxide 28 Anion Gap 7 L BUN 8.5 Creatinine 0.8 Est GFR (CKD-EPI)AfAm 115.47 Est GFR (CKD-EPI)NonAf 99.63 Random Glucose 110 H Calcium 8.9 Total Bilirubin 0.6 AST 45 H ALT 29 Alkaline Phosphatase 81 Total Protein 7.4 Albumin 3.7 Syphilis Serology Non-reactive Lab Results noted. Assessment: 08/16/20 18:53 WITHDRAWAL SYMPTOMS. HYPOKALEMIA. ELEVATED AST LEVEL. Plan: Continue Detox. K-Dur, 20 MEQ PO BId for low Potassium level noted on Detox Admission laboratory assessment. Re-Check Potassium level for effect on 08/18/2020.
[2020-08-16] MEDS ORDERED: QUEtiapine FUMARATE 50 MG TABLET PO SCH (22:00)
[2020-08-16] MEDS: QUEtiapine FUMARATE 100 MG TABLET (FP) PO SCH (22:40)
[2020-08-16] MEDS: THIAMINE HCL 100 MG TABLET (FP) PO SCH (22:41)
[2020-08-16] MEDS: MELATONIN 5 MG TABLETS PO SCH (22:42)
[2020-08-17] MEDS: chlordiazePOXIDE HCL 25 MG CAPSULE PO SCH ×4 (07:13→23:00)
[2020-08-17] MEDS: PRENATAL VITAMINS W/ FOLIC ACID TABLET (FP) PO SCH (10:59)
[2020-08-17] MEDS: NICOTINE 14 MG/24 HOURS TOPICAL PATCH TD SCH (10:59)
[2020-08-17] MEDS: POTASSIUM CHLORIDE TABS 20 MEQ TABLET.ER (FP) PO SCH ×2 (10:59→18:18)
--- NOTE | 2020-08-17 17:43 | PN ---
[facility] CIWA - CIWA Score Nausea/Vomitin-Mild Nausea/No Vomiting Muscle Tremors: 2 Anxiety: 2 Agitation: 2 Paroxysmal Sweats: 2 Orientation: 0-Oriented Tacttile Disturbances: 0-None Auditory Disturbances: 0-None Visual Disturbances: 0-None Headache: 0-None Present CIWA-Ar Total Score: 9 S Progress Note (SOAP) Subjective: Tremor, interrupted sleep Objective: 08/17/20 17:38 Last Vital Signs Temp Pulse Resp BP Pulse Ox 97.3 F L 98 H 18 102/74 100 08/17/20 12:40 08/17/20 12:40 08/17/20 12:40 08/17/20 12:40 08/17/20 12:40 Laboratory Tests 08/15/20 08/16/20 08/16/20 21:45 07:30 07:30 WBC 4.7 RBC 3.88 Hgb 11.5 Hct 34.6 MCV 89.0 MCH 29.7 MCHC 33.4 RDW 17.0 H Plt Count 291 D MPV 8.9 Sodium Potassium Chloride Carbon Dioxide Anion Gap BUN Creatinine Est GFR (CKD-EPI)AfAm Est GFR (CKD-EPI)NonAf Random Glucose Calcium Total Bilirubin AST ALT Alkaline Phosphatase Total Protein Albumin Syphilis Serology Non-reactive COVID-19 (ROLA) Not detected 08/16/20 07:30 WBC RBC Hgb Hct MCV MCH MCHC RDW Plt Count MPV Sodium 135 L Potassium 3.3 L Chloride 100 Carbon Dioxide 28 Anion Gap 7 L BUN 8.5 Creatinine 0.8 Est GFR (CKD-EPI)AfAm 115.47 Est GFR (CKD-EPI)NonAf 99.63 Random Glucose 110 H Calcium 8.9 Total Bilirubin 0.6 AST 45 H ALT 29 Alkaline Phosphatase 81 Total Protein 7.4 Albumin 3.7 Syphilis Serology COVID-19 (ROLA) Labs reviewed: K 3.3 (low), AST 45 (high), serum glucose 110 (high) Assessment: 08/17/20 17:39 Withdrawal sxs Noted with hypokalemia, transaminitis and hyperglycemia Plan: Continue detox Encourage PO water intake Hypokalemia: on PO potassium supplement, repeat serum K level Transaminitis: mild, most likely r/t withdrawal, encourage abstinence Hyperglycemia: could be withdrawal related, repeat fasting glucose
--- NOTE | 2020-08-17 21:42 | EKG ---
Test Reason : Blood Pressure : / mmHG Vent. Rate : 077 BPM Atrial Rate : 077 BPM P-R Int : 184 ms QRS Dur : 074 ms QT Int : 414 ms P-R-T Axes : 060 076 051 degrees QTc Int : 468 ms NORMAL SINUS RHYTHM WITH SINUS ARRHYTHMIA NORMAL ECG NO PREVIOUS ECGS AVAILABLE Confirmed by JENARO DICKENS MD ([id number]) on 08/17/2020 9:41:39 PM Referred By: Confirmed By:JENARO DICKENS MD
[2020-08-17] MEDS: QUEtiapine FUMARATE 100 MG TABLET (FP) PO SCH (22:59)
[2020-08-17] MEDS: MELATONIN 5 MG TABLETS PO SCH (23:00)
[2020-08-17] MEDS: THIAMINE HCL 100 MG TABLET (FP) PO SCH (23:00)
[2020-08-17] MEDS: ACETAMINOPHEN 325 MG TABLET (FP) PO PRN (23:01)
[2020-08-18] MEDS ORDERED: chlordiazePOXIDE HCL 10 MG CAPSULE PO PRN
[2020-08-18] MEDS: chlordiazePOXIDE HCL 10 MG CAPSULE PO SCH ×4 (06:42→22:12)
[2020-08-18] MEDS: NICOTINE 14 MG/24 HOURS TOPICAL PATCH TD SCH (10:47)
[2020-08-18] MEDS: POTASSIUM CHLORIDE TABS 20 MEQ TABLET.ER (FP) PO SCH ×2 (10:47→18:46)
[2020-08-18] MEDS: PRENATAL VITAMINS W/ FOLIC ACID TABLET (FP) PO SCH (10:47)
[2020-08-18 10:49] LABS: POTASSIUM 4.2 mmol/L (3.5-5.1)
--- NOTE | 2020-08-18 11:04 | PN ---
[facility] Progress Note Note: Patient reports sleeping poorly despite taking Seroquel 100 mg/hs. Requests to increase Seroquel to 300 mg/hs, dose she was on prior to current admission
--- NOTE | 2020-08-18 12:32 | PN ---
S CIWA - CIWA Score Nausea/Vomitin-No Nausea/No Vomiting Muscle Tremors: 2 Anxiety: 1-Mildly Anxious Agitation: 1-Slight > Activity Paroxysmal Sweats: 1-Minimal Palms Moist Orientation: 0-Oriented Tacttile Disturbances: 0-None Auditory Disturbances: 0-None Visual Disturbances: 0-None Headache: 0-None Present CIWA-Ar Total Score: 5 BHS Progress Note (SOAP) Subjective: sweats tired interrupted sleep agitation restless Objective: 08/18/20 12:31 Vital Signs Temperature 98.1 F 08/18/20 08:50 Pulse Rate 77 08/18/20 08:50 Respiratory Rate 16 08/18/20 08:50 Blood Pressure 99/66 08/18/20 08:50 O2 Sat by Pulse Oximetry (%) 100 08/18/20 08:50 Laboratory Tests 08/15/20 08/15/20 08/16/20 21:45 21:55 07:30 WBC RBC Hgb Hct MCV MCH MCHC RDW Plt Count MPV Sodium Potassium Chloride Carbon Dioxide Anion Gap BUN Creatinine Est GFR (CKD-EPI)AfAm Est GFR (CKD-EPI)NonAf Random Glucose Fasting Glucose Calcium Total Bilirubin AST ALT Alkaline Phosphatase Total Protein Albumin POC Urine HCG, Qual Negative Syphilis Serology Non-reactive COVID-19 (ROLA) Not detected 08/16/20 08/16/20 08/18/20 07:30 07:30 07:30 WBC 4.7 RBC 3.88 Hgb 11.5 Hct 34.6 MCV 89.0 MCH 29.7 MCHC 33.4 RDW 17.0 H Plt Count 291 D MPV 8.9 Sodium 135 L Potassium 3.3 L Cancelled Chloride 100 Carbon Dioxide 28 Anion Gap 7 L BUN 8.5 Creatinine 0.8 Est GFR (CKD-EPI)AfAm 115.47 Est GFR (CKD-EPI)NonAf 99.63 Random Glucose 110 H Fasting Glucose Calcium 8.9 Total Bilirubin 0.6 AST 45 H ALT 29 Alkaline Phosphatase 81 Total Protein 7.4 Albumin 3.7 POC Urine HCG, Qual Syphilis Serology COVID-19 (ROLA) 08/18/20 07:30 WBC RBC Hgb Hct MCV MCH MCHC RDW Plt Count MPV Sodium Potassium 4.2 Chloride Carbon Dioxide Anion Gap BUN Creatinine Est GFR (CKD-EPI)AfAm Est GFR (CKD-EPI)NonAf Random Glucose Fasting Glucose 82 Calcium Total Bilirubin AST ALT Alkaline Phosphatase Total Protein Albumin POC Urine HCG, Qual Syphilis Serology COVID-19 (ROLA) labs noted aaox3 ambulating no acute distress Assessment: 08/18/20 12:32 withdrawals Plan: continue detox increase fluids
[2020-08-18] MEDS: QUEtiapine FUMARATE 300 MG TABLET PO SCH (22:12)
[2020-08-18] MEDS: MELATONIN 5 MG TABLETS PO SCH (22:12)
[2020-08-18] MEDS: THIAMINE HCL 100 MG TABLET (FP) PO SCH (22:12)
[2020-08-19] MEDS: chlordiazePOXIDE HCL 10 MG CAPSULE PO SCH ×2 (07:01→18:08)
[2020-08-19] MEDS: NICOTINE 14 MG/24 HOURS TOPICAL PATCH TD SCH (10:36)
[2020-08-19] MEDS: PRENATAL VITAMINS W/ FOLIC ACID TABLET (FP) PO SCH (10:36)
[2020-08-19] MEDS: POTASSIUM CHLORIDE TABS 20 MEQ TABLET.ER (FP) PO SCH (10:36)
[2020-08-19] MEDS ORDERED: BACITRACIN 0.9 GM PACKET TP ONE (11:52)
--- NOTE | 2020-08-19 11:57 | PN ---
S CIWA - CIWA Score Nausea/Vomitin-No Nausea/No Vomiting Muscle Tremors: 1-None Visible, but [place] Anxiety: 1-Mildly Anxious Agitation: 0-Normal Activity Paroxysmal Sweats: 1-Minimal Palms Moist Orientation: 0-Oriented Tacttile Disturbances: 0-None Auditory Disturbances: 0-None Visual Disturbances: 0-None Headache: 0-None Present CIWA-Ar Total Score: 3 BHS Progress Note (SOAP) Subjective: anxiety sweats nail came off after my dog bit my finger weeks ago. Objective: 08/19/20 11:57 Vital Signs Temperature 97.1 F L 08/19/20 09:06 Pulse Rate 100 H 08/19/20 09:06 Respiratory Rate 18 08/19/20 09:06 Blood Pressure 100/73 08/19/20 09:06 O2 Sat by Pulse Oximetry (%) 97 08/19/20 09:06 Laboratory Tests 08/15/20 08/15/20 08/16/20 21:45 21:55 07:30 WBC RBC Hgb Hct MCV MCH MCHC RDW Plt Count MPV Sodium Potassium Chloride Carbon Dioxide Anion Gap BUN Creatinine Est GFR (CKD-EPI)AfAm Est GFR (CKD-EPI)NonAf Random Glucose Fasting Glucose Calcium Total Bilirubin AST ALT Alkaline Phosphatase Total Protein Albumin POC Urine HCG, Qual Negative Syphilis Serology Non-reactive COVID-19 (ROLA) Not detected 08/16/20 08/16/20 08/18/20 07:30 07:30 07:30 WBC 4.7 RBC 3.88 Hgb 11.5 Hct 34.6 MCV 89.0 MCH 29.7 MCHC 33.4 RDW 17.0 H Plt Count 291 D MPV 8.9 Sodium 135 L Potassium 3.3 L Cancelled Chloride 100 Carbon Dioxide 28 Anion Gap 7 L BUN 8.5 Creatinine 0.8 Est GFR (CKD-EPI)AfAm 115.47 Est GFR (CKD-EPI)NonAf 99.63 Random Glucose 110 H Fasting Glucose Calcium 8.9 Total Bilirubin 0.6 AST 45 H ALT 29 Alkaline Phosphatase 81 Total Protein 7.4 Albumin 3.7 POC Urine HCG, Qual Syphilis Serology COVID-19 (ROLA) 08/18/20 07:30 WBC RBC Hgb Hct MCV MCH MCHC RDW Plt Count MPV Sodium Potassium 4.2 Chloride Carbon Dioxide Anion Gap BUN Creatinine Est GFR (CKD-EPI)AfAm Est GFR (CKD-EPI)NonAf Random Glucose Fasting Glucose 82 Calcium Total Bilirubin AST ALT Alkaline Phosphatase Total Protein Albumin POC Urine HCG, Qual Syphilis Serology COVID-19 (ROLA) d/c potassium supplement. potassium level is now 4.2 aaox3 lying in bed no acute distress Assessment: 08/19/20 11:59 mild withdrawals finger assessed, right middle finger nail is off. nail bed in free from any s/s of infection. pt is able to move finer freely. motrin for any discomfort is ordered prn bacitracin ointment ordered prophylactically. Plan: continue detox d/c in am
[2020-08-19] MEDS: MELATONIN 5 MG TABLETS PO SCH (22:18)
[2020-08-19] MEDS: QUEtiapine FUMARATE 300 MG TABLET PO SCH (22:18)
[2020-08-19] MEDS: THIAMINE HCL 100 MG TABLET (FP) PO SCH (22:18)
[2020-08-20] MEDS ORDERED: chlordiazePOXIDE HCL 10 MG CAPSULE PO ONE (05:00)
[2020-08-20 06:30] VITALS: BP 107/69; PULSE 95; TEMP 96.6
== END 2020-08-20 09:25 | disposition home or self-care (01) | DRG 775 ==
LOC: YASAS 20:38 → Y6N 21:40
PROVIDERS: ADMIT Allergy & Immunology; ATTEND Allergy & Immunology
PROC: HZ2ZZZZ Detoxification Services for Substance Abuse Treatment (ICD-10-PCS; principal; 2020-08-15)
DX: F10.230 Alcohol dependence with withdrawal, uncomplicated (principal); F12.20 Cannabis dependence, uncomplicated; F17.210 Nicotine dependence, cigarettes, uncomplicated; F19.24 Other psychoactive substance dependence with psychoactive substance-induced mood disorder; F10.24 Alcohol dependence with alcohol-induced mood disorder; E87.6 Hypokalemia; G47.00 Insomnia, unspecified; R74.01 Elevation of levels of liver transaminase levels; R73.9 Hyperglycemia, unspecified; R63.4 Abnormal weight loss; Z68.1 Body mass index [BMI] 19.9 or less, adult; Z86.19 Personal history of other infectious and parasitic diseases; Z91.5 Personal history of self-harm; Z98.890 Other specified postprocedural states; Z88.8 Allergy status to other drugs, medicaments and biological substances; Z88.1 Allergy status to other antibiotic agents; Z59.0 Homelessness; Z56.0 Unemployment, unspecified
CPT/HCPCS: 36415; 80053; 81025; 82947; 84132; 85027; 86780; 93005; 93010; U0003